=== PATIENT | male | born 1970 | race Caucasian/White ===

== ENCOUNTER 2016-04-13 17:00 | Inpatient (IN) | payer BC ==
[~2016-04-13] VITALS: Ht 177.8 cm; Wt 114.5 kg
--- NOTE | ~2016-04-13 | HP ---
PATIENT'S NAME: DEMARCO DEWEY [facility] AGE: 46 Y [address] ROOM: [place] [address] LOCATION: [facility] ADMIT DATE: 04/13/2016 History & Physical DISCHARGE DATE: FAMILY PHYSICIAN: PHYSICIAN, UNKNOWN ATTENDING PHYSICIAN: Citlaly Gonzalez DATE OF SERVICE: CHIEF COMPLAINT: Unsteadiness and dizziness. HISTORY OF PRESENT ILLNESS: The patient is a 46-year-old, , white male, who was transferred from [facility] the day of admission to the care of myself and Dr. Citlaly Gonzalez. Historically, the patient in the last several weeks has had dizziness and unsteadiness, and I sent him in for an outpatient MRI of the day prior to admission, which came back showing a 4 cm mass, within the brain, thought to be meningioma. MRI at that time also showed hydrocephalus, so he has been at bedrest at [facility] for last several days, and he is admitted here to the care of Dr. Gonzalez to proceed with two things. One, a SENIOR SALES COMPENSATION ANALYST shunt; and second, evaluation by Dr. Rizo, our radiation oncologist, to see whether we proceed with a surgical approach or a radiological approach to treat this tumor. MEDICATIONS: See nurse's notes. ALLERGIES: SEE NURSE'S NOTES. PREVIOUS OPERATIONS: See old records. SOCIAL HISTORY: Does chew tobacco. FAMILY HISTORY: Noncontributory. REVIEW OF SYSTEMS: Positive for anxiety; major depression, on remission; tobacco use; chewing tobacco; hypertension, essential; hyperlipidemia; mild exogenous obesity; and current brain mass, etiology undetermined. PHYSICAL EXAMINATION: VITAL SIGNS: Pulse is 80, blood pressure 146/70, temp is normal, O2 saturation on room air. PATIENT'S NAME: DEMARCO DEWEY [facility] AGE: 46 Y [address] ROOM: [place] [address] LOCATION: [facility] ADMIT DATE: 04/13/2016 History & Physical DISCHARGE DATE: FAMILY PHYSICIAN: PHYSICIAN, UNKNOWN ATTENDING PHYSICIAN: Citlaly Gonzalez GENERAL: Hyperactive male with no focal neurologic abnormality. Judgment and insight, I think within normal limits, although he is hyper. HEENT: Shows pupils react to light. TMs not visualized. Posterior pharynx is clear. NECK: Unremarkable. Thyroid not enlarged. LUNGS: Clear without wheeze or rub. HEART: Shows no murmur, gallop, or rub. ABDOMEN: Mildly obese. No point tenderness or mass. PELVIC AND RECTAL: Not done. EXTREMITIES: Show pulses full throughout. NEUROLOGIC: Shows cranial nerves intact. No lateralizing signs. SKIN: No obvious rashes. MENTAL STATUS: He is anxious. ASSESSMENT: 1. Dizziness and unsteadiness. 2. Brain mass, probable meningioma, 4 cm, see MRI report. 3. Secondary hydrocephalus secondary to brain mass. 4. Hypertension, essential. 5. Tobacco use, chewing tobacco. 6. Major depression, on remission. 7. Anxiety about health. 8. Mild exogenous obesity. PLAN: As per Dr. Rollins. DAYA ROTHMAN MD RESTUARANT CREW WORKER/modl /[id number] D: [id number] T: [id number] HISTORY & PHYSICAL
--- NOTE | ~2016-04-13 | OR ---
PATIENT'S NAME: DEMARCO DEWEY [facility] AGE: 46 Y [address] ROOM: [address] [address] LOCATION: [facility] ADMIT DATE: 04/13/2016 OR/Procedure Report DISCHARGE DATE: FAMILY PHYSICIAN: PHYSICIAN, UNKNOWN ATTENDING PHYSICIAN: Citlaly Gonzalez SURGEON: Citlaly Gonzalez MD RODEO RIDER: DATE OF PROCEDURE: 04/14/2016 PREOPERATIVE DIAGNOSIS: Benign tumor, left tentorial meningioma with hydrocephalus. POSTOPERATIVE DIAGNOSIS: Benign tumor, left tentorial meningioma with hydrocephalus. OPERATION PROPOSED AND PERFORMED: Right ventriculoperitoneal shunt. DESCRIPTION OF PROCEDURE: Under general anesthesia, the patient was positioned supine, head tilted to the left, placed on a donut headrest and sandbag placed across the shoulder. The right parietooccipital region, neck, chest, and abdomen were prepped and draped in the usual fashion. Next, a semilunar incision was then carried out about three fingerbreadths from the midline over the lambdoid suture for the right ventricle. Pericranium was incised and reflected. Self-retaining retractors were used for retraction. A inga hole was carried out at this site. The dura was cauterized and incised in a small cruciate manner. Next, a subcutaneous tunnel was then fashioned, extending from the parieto-occipital incision all the way to the epigastrium. The peritoneal catheter was passed through the subcutaneous tunnel. Next, the ventricular catheter was then passed through the opening in the dura into the lateral ventricle. CSF came out under tremendous pressure. The opening pressure even after losing some CSF was 46 cm of water. Next, the medium- pressure Pudenz valve was then connected to the ventricular and peritoneal catheters, and a stitch was then placed on the flange to keep it to the pericranium. The wound was thoroughly irrigated with bacitracin irrigation. The galeal layer was then closed. Next, we directed our attention to the epigastrium, made an incision through the subcutaneous fatty layer, through the rectus sheath, and this got us to the preperitoneal fat which we were able to dissect off to get us to the peritoneum and made an incision in the peritoneum and the peritoneal catheter was freely advanced into the peritoneal cavity. Stitch was placed with 0 Vicryl to close the opening in the peritoneum. The opening in the peritoneum was quite small. Next, the abdominal incision was thoroughly irrigated with bacitracin irrigation and then closed in layers. First, the rectus sheath, then the subcutaneous fatty layer, which were closed with 0 Vicryl, and then the subcutaneous layer was closed with 2-0 Vicryl and angie were used to bring the skin edges together. [place] were then also used to bring the parieto-occipital incision edges together. The patient tolerated the procedure well and was taken to the PATIENT'S NAME: DEMARCO DEWEY [facility] AGE: 46 Y [address] ROOM: [place] [address] LOCATION: [facility] ADMIT DATE: 04/13/2016 OR/Procedure Report DISCHARGE DATE: FAMILY PHYSICIAN: PHYSICIAN, UNKNOWN ATTENDING PHYSICIAN: Citlaly Gonzalez recovery room. MD ANA PAULA LIM/steffi /[id number] d: 04/14/16 1718 t: 04/16/16 1603, OPERATIVE SUMMARY
--- NOTE | ~2016-04-13 | CONS ---
PATIENT'S NAME: ESTUARDO LEE [facility] AGE: 46 Y [address] ROOM: [id number] [place], [place] [address] LOCATION: [facility] ADMIT DATE: 04/13/2016 Oncology Report DISCHARGE DATE: 04/15/2016 FAMILY PHYSICIAN: Physician, Unknown ATTENDING PHYSICIAN: Citlaly Gonzalez RADIATION THERAPY CONSULTATION DATE OF SERVICE: 04/15/2016 REFERRING PHYSICIAN: Jamar Gregorio MD DIAGNOSIS: Presumed meningioma/neuroma impinging upon the brainstem. Dear Doctor: It was a pleasure to see in routine inpatient consultation, Mr. Estuardo Lee. As you recall, this is a 46-year-old white male who gives a history of having had some blood pressure and balance changes, but indicates this became more of a problem recently, which got him admitted to the hospita. He underwent imaging, which revealed what appears to be a 3.9 cm benign lesion impinging upon the brainstem. When seen today, the patient is sitting on his bed. He is about to be discharged, his is in the room. The patient gives a recent history of indicating that over the last several months, he started having difficulty with controlling his blood pressure, also he had lost a significant amount of weight. Further, he had some problems with balance issues and then started having problems with vision blurriness. This brought him to the attention of his physician. He was initially seen by his physicians, underwent radiology at [facility], which revealed a large mass anterior to the gumaro causing mild hydrocephalus, most likely felt to be a meningioma. This mass measured 36 x 33 x 44 mm. The patient also indicated there was mild enlargement of the lateral 3rd ventricles, 4th ventricle was compressed by mass effect from the mass. The patient subsequently was transferred to [facility]. He was evaluated by Dr. Gonzalez. Dr. Gonzalez felt that this patient most likely had either a meningioma or neuroma. When seen today, the patient is alert and oriented. He is very anxious. He talks with fast pressured speech. The patient and his give a very detailed history. The patient indicates 8 years ago, he had what he described as a heat stroke. Indicated he was working, had an episode where he felt he had a heat stroke, there was a period of time he was on the ground, he did not PATIENT'S NAME: ESTUARDO LEE [facility] AGE: 46 Y [address] ROOM: [address] [place] [address] LOCATION: [facility] ADMIT DATE: 04/13/2016 Oncology Report DISCHARGE DATE: 04/15/2016 FAMILY PHYSICIAN: Physician, Unknown ATTENDING PHYSICIAN: Citlaly Gonzalez lose consciousness, but he did say that he lost his vision at that time for a brief period of time. Since that time, the patient indicates he has had fairly significant near daily headaches. Also indicates that his speech pattern had become altered. The patient has been to his for over 2 decades, and she indicates that approximately at that time he started speaking with a much quicker ania and appeared to have altered speech patterns. More recently, the patient has had some problems with slurring of speech, indicates he had more problems with blurriness of vision, states that he had some dizziness. His says he has also been somewhat depressed. He denies any significant falling episodes. Approximately a year ago, the patient went on a significant health improvement program. He has lost 50+ pounds. He says in spite of the weight loss, he still felt that he was not doing well and then he started having complaints of the more recent visual problems, dizziness, speech alterations, mood alterations. The patient has been made aware of the fact that he has a mass in the area of the gumaro and brainstem and is aware that the potential approaches to this problem would include surgery and/ or radiotherapy. ALLERGIES: THE PATIENT HAS A KNOWN ALLERGY TO PENICILLIN. MEDICATIONS: The patient's current medications include: 1. Morphine. 2. Percocet. 3. Vitamin D. 4. Wellbutrin. 5. Sodium chloride. 6. Flomax. 7. Bystolic. 8. Ambien. 9. NicoDerm. 10. Ativan. 11. Zofran. 12. Benadryl. 13. Dilaudid. 14. Sublimaze. PAST SURGICAL HISTORY: Surgical, the patient upon this hospitalization has had the placement of a shunt for hydrocephalus. Other than that, the patient has not had any and significant surgical history. PAST MEDICAL HISTORY: Medical is positive for the patient having had obesity in the past, question PATIENT'S NAME: ESTUARDO LEE [facility] AGE: 46 Y [address] ROOM: [id number] [place], [place] [address] LOCATION: [facility] ADMIT DATE: 04/13/2016 Oncology Report DISCHARGE DATE: 04/15/2016 FAMILY PHYSICIAN: Physician, Unknown ATTENDING PHYSICIAN: Citlaly Gonzalez of hypertension, and hypercholesteremia. No other significant medical history noted. FAMILY HISTORY: The patient's parents have , both of malignancy; father of prostate cancer, mother of colon cancer. The patient has siblings with no history of malignancy and has children with no history of malignancy. SOCIAL HISTORY: The patient was born in [place], [place]. Has a 12th grade education. Works for the [employer]. He does not smoke. He does chew tobacco. He does not drink significantly. No history of drug use noted. No previous history of radiation therapy or chemotherapy noted. REVIEW OF SYSTEMS: GENERAL: The patient, as noted in HPI, did have complaints of headaches, for which he will take Advil several times a day. Had problems with dizziness, balance, alterations in speech, had lost 50-60 pounds in the last year. EYES: The patient indicates that he does have blurry vision. HEARING: No complaints or problems with the patient's hearing. ORAL CAVITY: No complaints with regard to the patient's oral cavity. The patient has his own teeth. NECK: No complaints of neck problems. LUNGS: No complaints of shortness of breath. COR: The patient denies any chest pain or left arm pain. GI: No problems with his stomach. No problems passing his stool. No blood in his stool. The patient indicates on occasion he has had problems passing his urine. Has been on Flomax. EXTREMITIES: No history of fractures. NEUROLOGIC: See HPI. ENDOCRINE: No history of diabetes or thyroid disease. TESTICULAR: No history of undescended testes or surgery to the testicular region. PHYSICAL EXAMINATION: VITAL SIGNS: Include a temperature of 97.7, a pulse of 62, a blood pressure 127/71, a weight of 111.4 kg. GENERAL: A well-developed, well-nourished white male, in no apparent distress. HEAD AND NECK: Normocephalic, atraumatic. The patient does have a dressing in place posterior on his left scalp from where he has had his shunt placed. This appears to be within normal limits. No areas of breakdown noted. No bleeding noted. No areas of infection noted. Extraocular motions are intact. Oral cavity without masses or mycotic lesions. Neck with no masses noted. ABDOMEN: Soft, nontender. PATIENT'S NAME: ESTUARDO LEE [facility] AGE: 46 Y [address] ROOM: [place] [address] LOCATION: [facility] ADMIT DATE: 04/13/2016 Oncology Report DISCHARGE DATE: 04/15/2016 FAMILY PHYSICIAN: Physician, Unknown ATTENDING PHYSICIAN: Citlaly Gonzalez EXTREMITIES: Without clubbing, cyanosis, or edema. NEUROLOGIC: Alert and oriented x3. Cranial nerves appear to be grossly normal, though the patient complains of difficulty with vision. Extraocular motions are intact. The muscle strengths are 5/5 and symmetric in upper and lower extremities. The patient walks with a near normal gait, but does have some mild difficulty with balance. Mini-mental exam: The patient talks with somewhat fast and pressured speech. His indicates this has been ongoing for approximately 8 years. The patient indicates he is anxious. He was walking around the room, pacing somewhat. His balance was somewhat off. He was able to stand on either foot alone, also with minimal difficulty. He was able to interpret parables correctly, was able to do serial 3 subtraction. He was aware of who the president is, where he was, and what the date was. LABORATORIES: The patient did have an MRI of the brain done on 04/09. This revealed the 36 x 33 x 44 cm mass impinging on the gumaro in the brainstem. This was slightly hyperechoic on T2 weighted image, hyperintense on FLAIR weighted images. There was mild enlargement to the lateral and 3rd ventricles noted, 4th ventricle was compressed. The patient has had a shunt placed. ICD-10. IMPRESSION: A 46-year-old white male with a new diagnosis of what appears to be meningioma versus neuroma. PLAN: We will re-evaluate the patient's scans. The question is whether or not his best interests would be served with surgery versus radiation therapy and whether radiation therapy would be conventional radiotherapy to the affected area with an IMRT technique versus stereotactic radiosurgery. After we have reviewed the patient's films, we will discuss this case Dr. Gonzalez, with peer review as well as at outside experts in terms of optimum radiation therapy treatment. The patient was told what radiation therapy would entail. He indicated he would await our phone call. The patient has been scheduled for followup with us in a week and a half. At that point, we will discuss with him his optimum treatment option and proceed. We thank you for allowing us to consult on this most pleasant patient. PATIENT'S NAME: ESTUARDO LEE [facility] AGE: 46 Y [address] ROOM: [place] [address] LOCATION: [facility] ADMIT DATE: 04/13/2016 Oncology Report DISCHARGE DATE: 04/15/2016 FAMILY PHYSICIAN: Physician, Unknown ATTENDING PHYSICIAN: Citlaly Gonzalez JJ MIRELES MD, PHD FZL/estefanial /[id number] CC: Citlaly Gonzalez MD d: 04/15/16 2245 t: 04/26/16 [facility], CONSULTATION REPORT
[2016-04-13] MEDS ORDERED: BYSTOLIC10 MG PO (18:20)
[2016-04-13] MEDS ORDERED: VITAMIN D35000 UNIT PO (18:21)
[2016-04-13] MEDS ORDERED: FLOMAX0.4 MG PO (18:21)
[2016-04-13] MEDS ORDERED: ATIVAN 1 MG1 MG PO (18:21)
[2016-04-13] MEDS ORDERED: TAMIFLU75 MG PO (18:22)
[2016-04-13] MEDS ORDERED: WELLBUTRIN XL300 M1 PO (18:23)
--- NOTE | 2016-04-13 19:29 | NUR ---
patient is 46 yo male admitted for brain tumor with resultant hydrocephalus that is causing vision and gait changes. he will be going into surgery tomorrow to place a shunt to help with the fluid. 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 saline lock is started in right forearm without difficulty after 2 attempts by another RN, with 18 ga intracath. patient suresh well. Education is given as documented. patient denies questions. patient chews a can of chew every day. Patient is very anxious about being here and undergoing surgery. states he is wanting to stay in the recliner for most of the night. pneumatics are not on at this time as patient is still in his jeans. call light is within reach. denies questions or needs at this time. is eating supper. Report is given to ANISA Mazariegos.
--- NOTE | 2016-04-14 04:59 | NUR ---
Significant Event: A/OX3. DENIES NUMBNESS AND TINGLING. MOVES ALL EXTREMITIES SPONTANEOUSLY AND TO COMMAND. PUPILS 3.0 AND BRISK. STRONG, EQUAL STRENGTH IN ALL EXTREMITIES. VSS ON ROOM AIR. UP SBA. NPO AT MIDNIGHT FOR PLACEMENT OF WHEEL POLISHER SHUNT THIS AM. IV TO RIGHT FOREARM RUNNING NS AT 125/HR. NO COMPLAINTS OF PAIN. SHOWERED FOR SURGERY. COMPLAINS OF BLURRY VISION. NO COMPLAINTS OF DIZZINESS. PERMITS SIGNED. ANXIOUS ABOUT SURGERY. LAST BM ON 04/13/16. SCDS ON. Follow up: SURGERY THIS AM FOR PLACEMENT OF WHEEL POLISHER SHUNT
[2016-04-14 08:17] LABS: BASOPHIL % 0.2 %; HEMATOCRIT 46.2 % (37.0-53.0); HEMOGLOBIN 15.8 g/dL (12.0-17.0); IMMATURE GRANULOCYTE # 0.3 K/uL (0.0-0.3); IMMATURE GRANULOCYTE % 1.6 %; LYMPHOCYTE # 3.1 K/uL (0.8-4.0); LYMPHOCYTE % 17.1 %; MCH 30.3 pg (27.0-34.0); MCHC 34.2 gm/dL (32.0-36.5); MCV 88.5 fl (83.0-98.0); MONOCYTE # 1.1 K/uL (0.0-1.0); MONOCYTE % 6.3 %; MPV 9.7 fl (9.4-12.4); NEUTROPHIL # (ANC) 13.4 K/uL (1.4-9.0); NEUTROPHIL % 74.8 %; NRBC % 0 /100WBC (0-0.00); PLATELET COUNT 317 K/uL (150-450); RBC 5.22 M/uL (4.00-6.00); RDW-CV 13.2 % (11.9-14.6)
[2016-04-14 08:19] LABS: WBC 17.9 K/uL (4.0-11.0)
[2016-04-14 08:26] LABS: ALBUMIN 3.6 gm/dL (3.5-5.0); ALK PHOS 63 IU/L (33-138); ALT 21 IU/L (12-78); ANION GAP 14.3 (10.0-19.0); AST 8 IU/L (10-40); BLOOD UREA NITROGEN 21 mg/dL (6-24); CALCIUM 8.6 mg/dL (8.5-10.5); CHLORIDE 108 mMol/L (96-110); CO2 24 mMol/L (22-32); CREATININE 1.1 mg/dL (0.6-1.3); ESTIMATED GFR (MDRD EQUATION) > 60; POTASSIUM 4.3 mMol/L (3.7-5.1); SODIUM 142 mMol/L (135-145); TOTAL BILIRUBIN 0.3 mg/dL (0.0-1.5); TOTAL PROTEIN 6.8 g/dL (6.0-8.4)
--- NOTE | 2016-04-14 15:30 | NUR ---
A&OX2 PT WAS HAZY AFTER SX. 1PA. SBP 110'S-130'S. HR NS 60'S-70'S. AFEBRILE. C/O PAIN TO INCISION SITES 2TABS PERC LAST AT 1430. LS CLEAR. VD PER URINAL. NO BM TODAY. DSG TO BACK OF HEAD AND ABD WITH MARKED SHADOW DRAINAGE NOTED. CSM WNL. NEURO CHECKS WNL. RADIATION REFERRAL TODAY. R FA IV NS @125ML. AT BEDSIDE PLAN IS HOME POSSIBLE WEDNESDAY.
--- NOTE | 2016-04-15 03:38 | NUR ---
Significant Event: A&OX3. Denies N&T. Denies blurry vision. Eye equal and reactive. Equal strength. On tele SR. RA lungs clear. Last BM 04/13. Regular diet. Shadow drainage to abdomin drsg and Island drsg to R) side of head. IV to R) forearm running NS at 125ml/hr. Percocet given for pain. Up SBA. Follow up:
[2016-04-15] MEDS ORDERED: PERCOCET 5-3251 EACH PO (14:01)
[2016-04-17] MEDS ORDERED: DULCOLAX STOOL100 MG PO (18:24)
[2016-04-19] MEDS ORDERED: SENOKOT8.6 MG PO (12:47)
[2016-04-19] MEDS ORDERED: MIRALAX17 GM PO (12:47)
== END 2016-04-15 14:35 | disposition disaster alternative care site (69) | DRG 33 ==
LOC: EDSEX 17:00 → GNTU 17:46
PROVIDERS: Anesthesiology; ADMIT Neurological Surgery
PROC: 00163J6 Bypass Cerebral Ventricle to Peritoneal Cavity with Synthetic Substitute, Percutaneous Approach (ICD-10-PCS; principal; 2016-04-14)
DX: D32.0 Benign neoplasm of cerebral meninges (principal); G91.4 Hydrocephalus in diseases classified elsewhere; I10 Essential (primary) hypertension; F41.9 Anxiety disorder, unspecified; E78.5 Hyperlipidemia, unspecified; E66.09 Other obesity due to excess calories; Z68.35 Body mass index [BMI] 35.0-35.9, adult; F32.5 Major depressive disorder, single episode, in full remission; F17.220 Nicotine dependence, chewing tobacco, uncomplicated
CPT/HCPCS: J1100; J2405; J3010; J3370; J7030